=== PATIENT | male | born 1990 | race American Indian/Alaskan Native ===

== ENCOUNTER 2016-12-06 10:52 | Observation (INO) | payer MEDICAID ==
[2016-12-06 11:05] VITALS: RESP 18
--- NOTE | 2016-12-06 11:40 | C.PDOC ---
History Of Present Illness 26 year old male was brought to the ED by EMS (accompanied by PD) after being picked up at a bus stop for "bizarre behavior". Patient apparently appeared to under influence of drugs/alcohol, and was agitated on transport to ED. Patient was restrained by EMS and on ED arrival. He denies physical complaints, suicidal or homicidal ideations. Time Seen by Provider: 12/06/16 11:13 Chief Complaint (Nursing): Substance Abuse History Per: Patient History/Exam Limitations: no limitations Onset/Duration Of Symptoms: Unknown Current Symptoms Are (Timing): Still Present Suicide/Self Injury Attempted (Context): None Associated Symptoms: Anger, Agitation. denies: Suicidal Thoughts, Suicidal Plan Past Medical History Reviewed: Historical Data, Nursing Documentation, Vital Signs Vital Signs: Last Vital Signs Temp 98.0 F 12/06/16 12:45 Pulse 61 12/06/16 12:45 Resp 18 12/06/16 12:45 BP 120/74 12/06/16 12:45 Pulse Ox 99 12/06/16 18:25 - Medical History PMH: No Chronic Diseases Family History: States: No Known Family Hx - Social History Hx Alcohol Use: No (denies) Hx Substance Use: No (denies) - Immunization History Hx Tetanus Toxoid Vaccination: No Hx Influenza Vaccination: Yes (2014) Hx Pneumococcal Vaccination: No Review Of Systems Except As Marked, All Systems Reviewed And Found Negative. Constitutional: Negative for: Fever, Chills Cardiovascular: Negative for: Chest Pain, Palpitations Respiratory: Negative for: Cough, Shortness of Breath Gastrointestinal: Negative for: Nausea, Vomiting Psych: Positive for: Other (agitation ). Negative for: Suicidal ideation Physical Exam - Physical Exam Appears: Non-toxic, No Acute Distress, Combative, Agitated Skin: Warm, Dry, No Rash Head: Atraumatic, Normacephalic Eye(s): bilateral: Other (2-3mm pupils B/L) Oral Mucosa: Moist Neck: Supple Cardiovascular: Rhythm Regular Respiratory: Normal Breath Sounds, No Rales, No Rhonchi, No Wheezing Gastrointestinal/Abdominal: Normal Exam, Bowel Sounds, Soft, No Tenderness Extremity: Normal ROM, No Tenderness Neurological/Psych: Oriented x3 Gait: Steady ED Course And Treatment O2 Sat by Pulse Oximetry: 99 (RA) Pulse Ox Interpretation: Normal Progress Note: Accucheck and UDS ordered and reviewed. Patient denies drug/ alcohol use, states he was agitated because a bunch of EMS and police "came at him". Reevaluation Time: 12:35 Reassessment Condition: Improved (On reassessment, patient is calm and cooperative. He is AAOx3 and ambulating normally in ED. Patient clinically sober at this time, will discharge.) Disposition Counseled Patient/Family Regarding: Studies Performed, Diagnosis, Need For Followup - Disposition Disposition: HOME/ ROUTINE Disposition Time: 12:35 Condition: STABLE - POA Present On Arrival: None - Clinical Impression Clinical Impression: Agitation - Scribe Statement The provider has reviewed the documentation as recorded by the Scribe Jennifer Caicedo All medical record entries made by the Lingibe were at my direction and personally dictated by me. I have reviewed the chart and agree that the record accurately reflects my personal performance of the history, physical exam, medical decision making, and the department course for this patient. I have also personally directed, reviewed, and agree with the discharge instructions and disposition.
[2016-12-06 12:46] VITALS: BP 120/74; PULSE 61; TEMP 98
[2016-12-06 17:02] VITALS: O2SAT 99
== END 2016-12-06 12:36 | disposition home or self-care (01) ==
LOC: C.ER 10:52 → C.9OBSV 11:31
PROVIDERS: ADMIT Emergency Medicine; ATTEND Emergency Medicine
DX: R45.1 Restlessness and agitation (principal)
CPT/HCPCS: 80324; 80345; 80346; 80349; 80353; 80358; 80361; 82948; 83992; 99285; G0378